=== PATIENT | male | born 1960 | race American Indian/Alaskan Native ===

== ENCOUNTER 2016-06-18 21:16 | Emergency (ER) | payer SELFPAY ==
[~2016-06-18] VITALS: Ht 172.7 cm; Wt 97.0 kg
[2016-06-18 21:54] VITALS: Ht 172.7 cm; Wt 97.0 kg
[2016-06-18 22:15] VITALS: BP 124/81; PULSE 64; RESP 20; TEMP 98.2
--- NOTE | 2016-06-18 22:29 | ERD ---
ER Documentation Chief Complaint Date/Time DATE: 06/18/16 TIME: 22:28 Chief Complaint left eye pain, hx of detachment has sx scheduled 06/29 HPI This is a 56-year-old gentleman, the left eye pain. He has a history of retinal detachment with 2 previous surgeries on his left eye. He is scheduled for another surgery on the . Today he said he felt that his vision got slightly worse. It is now better. Patient wants an ophthalmology evaluation. Informed that we do not have ophthalmology in the ER and he could wait to try to be transferred out. At this point the patient wants to be discharged to go to hospitalize ophthalmology. ROS All systems reviewed and are negative except as per history of present illness. PMhx/Soc History of Surgery: Yes (RETINAL DETACHMENT ) Anesthesia Reaction: No Hx Neurological Disorder: No Hx Respiratory Disorders: No Hx Cardiac Disorders: Yes (CHOLESTEROL ) Hx Psychiatric Problems: Yes (ANXIETY) Hx Miscellaneous Medical Probl: Yes (DIABETES ) Hx Alcohol Use: No Hx Substance Use: No Hx Tobacco Use: No Smoking Status: Never smoker Physical Exam Vitals Vital Signs Date Time Temp Pulse Resp B/P Pulse Ox O2 Delivery O2 Flow Rate FiO2 06/18/16 22:15 98.2 64 20 124/81 96 Room Air 06/18/16 21:54 97.9 64 16 120/86 98 Physical Exam Const: [] Head: Atraumatic Eyes: Normal Conjunctiva ENT: Normal External Ears, Nose and Mouth. Neck: Full range of motion..~ No meningismus. Resp: Clear to auscultation bilaterally Cardio: Regular rate and rhythm, no murmurs Abd: Soft, non tender, non distended. Normal bowel sounds Skin: No petechiae or rashes Back: No midline or flank tenderness Ext: No cyanosis, or edema Neur: Awake and alert Psych: Normal Mood and Affect Procedures/MDM Visual acuity is 20 out of 80 on the affected side. 20/20 on unaffected side. 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 He is undergoing a third surgery on 29 June, but the patient wants to move up as scheduled surgery so he will be discharged and will go to another hospital of his own accord. Patient offered [facility] transfer, however patient declined and wants to be discharged home. Departure Diagnosis: Primary Impression: Eye problem Condition: Stable Patient Instructions: Retinal Detachment YVES PAINTER June 18, 2016 22:29
== END 2016-06-18 22:33 | disposition home or self-care (01) ==
LOC: E/R 21:16
DX: H57.12 Ocular pain, left eye (principal); E11.9 Type 2 diabetes mellitus without complications
CPT/HCPCS: 99282